=== PATIENT | female | born 1985 | race Caucasian/White ===

== ENCOUNTER 2020-06-04 10:47 | Emergency (ER) | payer SELFPAY ==
[2020-06-04 11:01] VITALS: BP 140/73; PULSE 82; RESP 18; TEMP 36.8; O2SAT 100; BMI 21.4
--- NOTE | 2020-06-04 11:08 | XRR_ITS ---
PROCEDURE INFORMATION: Exam: XR Left Wrist Exam date and time: 06/04/2020 11:10 AM Age: 34 years old Clinical indication: Injury or trauma; Fall; Initial encounter; Blunt trauma (contusions or hematomas; Wrist; Left TECHNIQUE: Imaging protocol: XR Left wrist. Views: 3 or more views. COMPARISON: No relevant prior studies available. FINDINGS: Bones/joints: 6 mm os ossific density adjacent to the radial styloid. Irregularity of the adjacent scaphoid suggested. Soft tissues: Ossific densities in the soft tissues slightly distal to the ulnar styloid process fracture. Irregular appearance to the adjacent triquetrum. Likely comminuted triquetrum fracture. Ossific densities are noted dorsally. XR/XR wrist LT min 3V* [id number] IMPRESSION: 1. Ossific densities in the soft tissues slightly distal to the ulnar styloid process fracture. Irregular appearance to the adjacent triquetrum. comminuted triquetrum fracture. Ossific densities noted dorsally. Correlate with CT. 2. 6 mm os ossific density adjacent to the radial styloid. Irregularity of the adjacent scaphoid suggested. Correlate with CT.
--- NOTE | 2020-06-04 11:14 | ED_ITS ---
HPI - Fall General: Chief Complaint: Fall Stated Complaint: Fall from 8ft/L wrist injury Time Seen by Provider: 06/04/20 11:08 History of Present Illness: HPI Narrative: Patient was on a ladder hitting tree branches when a branch struck her and knocked her off of the ladder. Patient was proximally 8 feet off the ground. Patient did strike her head but does not complain of headache and had no loss of consciousness. Patient's only complaint is pain and swelling to her left wrist. MD complaint: fall Onset (ago): minute(s) Fall from: from height (distance) (8 ft) Fall witnessed: no Place fall occurred: home Loss of consciousness: None Prolonged down time: no Symptoms prior to fall: none Review of Systems General: Reports: 10 or more systems reviewed and unremarkable except in HPI and below [facility] Female Reproductive History: Date of last menstrual period: 05/25/20 Physical Exam Const: COMMON NORMALS: patient oriented x3, no limitations and alert GENERAL APPEARANCE: cooperative HENMT: COMMON NORMALS: normocephalic, atraumatic, external ears normal and Normal external nose present HEAD & SCALP: normocephalic and atraumatic FACE & SINUS: normal facial exam NOSE: Normal external nose present EXTERNAL EAR: Yes external ears normal MOUTH: Normal oral and palatal mucosa present Neck/C-Spine: COMMON NORMALS: full ROM, no lymphadenopathy, supple, no meningeal signs and no JVD GENERAL: Yes normal visual inspection Resp: COMMON NORMALS: normal respiratory effort, No retractions, No use of accessory muscles and clear to auscultation bilaterally AUSCULTATION: clear to auscultation bilaterally Cardio: COMMON NORMALS: no JVD, regular rate and regular rhythm RATE: regular rate RHYTHM: regular rhythm GI: COMMON NORMALS: Normal to inspection, nondistended, normoactive bowel sounds present, Soft to palpation, non-tender, No hepatosplenomegaly present and no masses INSPECTION: Yes normal to inspection AUSCULTATION: Yes normoactive bowel sounds PALPATION: Yes Soft to palpation and Yes No hepatosplenomegaly present PERCUSSION: normal to percussion : COMMON NORMALS: Yes no CVA tenderness and Yes normal external appearance BLADDER/KIDNEY EXAM: Yes no CVA tenderness Back/Pelvis: COMMON NORMALS: no CVA tenderness, thoracic and lumbar spine normal to inspection, no thoracic nor lumbar tenderness, thoraco-lumbar ROM normal and straight leg raise negative bilaterally Extremity: COMMON NORMALS: capillary refill normal, no clubbing, cyanosis or edema, no calf tenderness and no pedal edema LEFT UPPER EXTREMITY: Yes wrist Left wrist: Yes inspection (Swelling), Yes palpation (Tenderness), Yes ROM (Reduced secondary to pain) and Yes neurovascular exam (Intact) Neuro: COMMON NORMALS: patient oriented x3, moves all extremities, no focal motor deficits and no sensory deficits noted SENSORIUM/ORIENTATION: Yes alert MENINGEAL SIGNS: Yes no meningeal signs Psych: COMMON NORMALS: mental status grossly normal, Normal thought process present, cooperative, normal affect and speech normal SPEECH: Yes normal speech THOUGHT PROCESS: Normal thought process present Skin: COMMON NORMALS: no rashes or lesions noted, no wounds, turgor normal, no jaundice, no petechiae and no mottling GENERAL SKIN EXAM: no rashes or lesions noted and turgor normal Course Vital Signs: Vital signs: Vital Signs Temperature 98.3 F 06/04/20 11:01 Pulse Rate 82 06/04/20 11:01 Respiratory Rate 18 06/04/20 11:01 Blood Pressure 140/73 06/04/20 11:01 Pulse Oximetry 100 06/04/20 11:01 MDM - Fall MDM Narrative: Medical decision making narrative: I spoke to Dr. Samson by phone during this patient's injuries. He feels that the best course of action would be for her to follow-up with a hand surgeon. Discharge Plan Discharge Patient Disposition: Home Clinical Impression: Fracture of wrist Qualifiers: Encounter type: initial encounter Fracture type: closed Laterality: left Qualified Code(s): S62.102A - Fracture of unspecified carpal bone, left wrist, initial encounter for closed fracture Condition: Stable Prescriptions: New hydrocodone-acetaminophen 5-325 mg tablet 1 tab PO Q4H PRN (Reason: pain) Qty: 15 RF: 0 No Action No Known Home Medications RF: 0 Discharge Orders: Discharge Order (Routine); Ordered 06/04/20 Ordered By: Hugh Yu Referrals: Kendall Reyna MD [Primary Care Provider] - Coding Level of Care Code ED Director Of People for Chg Fwd Exam Comprehensive
--- NOTE | 2020-06-05 15:28 | PC.SOCIAL ---
Called the patient and she stated that she would like to see Doctor Vu at [facility]. . Referral will be sent to that facility.
--- NOTE | 2020-06-06 08:30 | PC.SOCIAL ---
Faxed referral to Dr Vu office at [facility] affiliated with [facility]. Confirmation received that fax was sent successfully. Will follow up in a few days to check on referral.
--- NOTE | 2020-06-09 11:21 | DCPLANNER ---
Patient has a follow up appointment scheduled for Friday, June 12, 2020 at 11:[address] Santo at 11:00 with [facility]. Clinic called patient with appointment information.
--- NOTE | 2020-06-15 15:36 | DCPLANNER ---
Patient did attend appointment scheduled for appointment for 06.12.20 with
== END 2020-06-04 12:31 | disposition home or self-care (01) ==
PROVIDERS: Emergency Provider Family Medicine; PCP Family Medicine
DX: S52.612A Displaced fracture of left ulna styloid process, initial encounter for closed fracture (principal); W11.XXXA Fall on and from ladder, initial encounter
CPT/HCPCS: 12345; 29125; 73110; 99282; 99283